=== PATIENT | female | born 1975 | race Caucasian/White ===

== ENCOUNTER 2022-12-08 16:13 | Emergency (ER) | payer BC, SELFPAY ==
[2022-12-08 16:25] VITALS: BP 157/86; PULSE 77; RESP 18; TEMP 37; O2SAT 100
--- NOTE | 2022-12-08 16:39 | ED.EXTPRO ---
HPI - Extremity Problem General Chief complaint: Extremity Problem,Nontraumatic Stated complaint: Lt Shoulder Pain Time Seen by Provider: 12/08/22 16:33 Source: patient and RN notes reviewed Mode of arrival: ambulatory Limitations: no limitations History of Present Illness HPI Narrative: Patient presents today complaining of left shoulder pain and stiffness. States her range of motion has been limited for the past month and she wanted to come in and be evaluated to see if she had a frozen shoulder. 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 She currently rates her pain 5/10. Related Data Home Medications Medication Instructions Recorded Confirmed No Home Medications 12/08/22 12/08/22 Allergies Allergy/AdvReac Type Severity Reaction Status Date / Time aspirin AdvReac Severe Swelling Verified 12/08/22 16:34 of Lip/Tongue/Throat Review of Systems Review of Systems: CONSTITUTIONAL: Denies body aches, fever, chills, or sweats. EYES: Denies visual changes, redness, or discharge. ENT: Denies rhinorrhea, congestion, sore throat, or otalgia. CARDIOVASCULAR: Denies chest pain, palpitations, or edema. RESPIRATORY: Denies cough or dyspnea. GASTROINTESTINAL: Denies abdominal pain, nausea, vomiting, or diarrhea. GENITOURINARY: Denies dysuria or hematuria. SKIN: Denies rash, itching, or wounds. MUSCULOSKELETAL: + left shoulder pain and stiffness NEUROLOGIC: Denies headache, numbness, tingling, or weakness. PSYCH: Denies depression or anxiety. PMFSH Social History Social History Smoking status: Never smoker Second hand tobacco smoke exposure: No Alcohol intake: current Comments At time of signature, I have reviewed and agree with nursing past medical, surgical, social and family history unless otherwise noted. Please see nursing chart for further information. There is no relevant family history pertinent to the presenting complaint Exam Narrative: GENERAL: Well-appearing, well-nourished, and in no acute distress. HEAD: Normocephalic, atraumatic. EYES: EOMI. No redness or drainage. Conjunctivae normal. ENT: Mucous membranes pink and moist. NECK: Normal AROM. CHEST: No respiratory distress. EXTREMITIES: Left shoulder: 90 degree anterior reach and abduction, limited internal and external rotation. Distal sensation intact. Capillary refill normal. Radial pulse normal. Tenderness to the anterior shoulder. No edema or ecchymosis noted. SKIN: Warm, dry, no rash. Capillary refill normal. Normal skin turgor. NEURO: No focal deficits. Alert and oriented x3. Gait steady. PSYCH: Normal affect. No signs of depression or anxiety. Course Course Level of Care: Express Care Visit Vital Signs Vital signs: Vital Signs Temperature 98.6 F 12/08/22 16:25 Pulse Rate 77 12/08/22 16:25 Respiratory Rate 18 12/08/22 16:25 Blood Pressure 157/86 H 12/08/22 16:25 Pulse Oximetry 100 12/08/22 16:25 Oxygen Delivery Room Air 12/08/22 16:25 Temperature 98.6 F 12/08/22 16:25 Pulse Rate 77 12/08/22 16:25 Respiratory Rate 18 12/08/22 16:25 Blood Pressure 157/86 H 12/08/22 16:25 Pulse Oximetry 100 12/08/22 16:25 Oxygen Delivery Room Air 12/08/22 16:25 Reviewed. Pt has been instructed to follow up with her PCP regarding her elevated blood pressure today. MDM - Extremity (Nontraumatic) MDM Narrative Medical decision making narrative: Patient has marked decreased range of motion. Recommend following up with PCP and/or Orthopedics for further evaluation. No prescription medications indicated at this time. Anticipatory guidance given. Differential Diagnosis Differential diagnosis: Likely other (Rotator cuff tendinitis, ligament injury, adhesive capsulitis) Critical Care Time Critical Care Time Critical Care Time: No Discharge Pl
== END 2022-12-08 16:45 | disposition home or self-care (01) ==
PROVIDERS: Emergency Provider Nurse Practitioner
DX: M25.512 Pain in left shoulder (principal)
CPT/HCPCS: 99202; G0463